=== PATIENT | female | born 1980 | race Caucasian/White ===

== ENCOUNTER 2018-02-09 14:18 | Emergency (ER) | payer OTHER ==
[2018-02-09 14:52] VITALS: BP 158/75; PULSE 78; RESP 18; TEMP 98.2; O2SAT 100
[2018-02-09 15:19] VITALS: BMI 25.7
[2018-02-09] MEDS ORDERED: Albuterol 0.083% Inhal Sol (2.5 mg/3 mL) UD INH STA (15:20)
[2018-02-09 15:59] LABS: URINE BILIRUBIN NEGATIVE (NEGATIVE); URINE BLOOD NEGATIVE (NEGATIVE); URINE GLUCOSE (UA) NEGATIVE (NEGATIVE); URINE LEUKOCYTE ESTERASE TRACE Leu/uL (NEGATIVE); URINE PROTEIN 30 mg/dL (<30 mg/dL); URINE UROBILINOGEN 0.2 E.U./dL (<1 E.U./dL)
[2018-02-09 16:01] LABS: URINE APPEARANCE CLEAR (CLEAR); URINE COLOR YELLOW (YELLOW)
--- NOTE | 2018-02-09 16:06 | ED PDOC ---
Arrival/HPI - General Chief Complaint: ENT Problem Time Seen by Provider: 02/09/18 14:22 Historian: Patient - History of Present Illness Narrative History of Present Illness (Text): 02/09/18 16:21 38yo female with no past medical history who present with complaint of nonproductive cough, sore throat, dysuria, urinary frequency, x few days. States sore throat started today. She smokes cigarette. Denies abdominal pain, fever, chills, chest pain, SOB, drooling, hoarseness, neck pain, hematuria, nausea, vomiting, diarrhea, sick contact, any other complaint. Past Medical History - Provider Review Nursing Documentation Reviewed: Yes - Past History Past History: No Previous - Infectious Disease Hx of Infectious Diseases: None - Tetanus Immunization Tetanus Immunization: Unknown - Cardiac Hx Hypertension: Yes - Psychiatric Hx Depression: No Hx Emotional Abuse: No Hx Physical Abuse: No Hx Substance Use: No - Surgical History Hx Section: Yes (x 3) - Anesthesia Hx Anesthesia: No Hx Anesthesia Reactions: No Hx Malignant Hyperthermia: No - Suicidal Assessment Feels Threatened In Home Enviroment: No Family/Social History - Physician Review Nursing Documentation Reviewed: Yes Family/Social History: Unknown Family HX Smoking Status: Light Smoker < 10 Cigarettes Daily Hx Alcohol Use: No Hx Substance Use: No Hx Substance Use Treatment: No Allergies/Home Meds Allergies/Adverse Reactions: Allergies No Known Allergies Allergy (Verified 04/30/16 13:43) Review of Systems - Physician Review All systems were reviewed & negative as marked: Yes - Review of Systems Constitutional: Normal Eyes: Normal ENT: Sore Throat Respiratory: Cough. absent: SOB, Sputum Cardiovascular: Normal Gastrointestinal: Normal. absent: Abdominal Pain Genitourinary Female: Dysuria, Frequency. absent: Hematuria Musculoskeletal: Normal Skin: Normal Neurological: Normal Endocrine: Normal Hemo/Lymphatic: Normal Psychiatric: Normal Physical Exam Vital Signs Reviewed: Yes Vital Signs Temp Pulse Resp BP Pulse Ox 02/09/18 17:02 78 18 158/75 H 100 02/09/18 14:51 98.2 F 78 18 158/75 H 100 Temperature: Afebrile Blood Pressure: Normal Pulse: Regular Respiratory Rate: Normal Appearance: Positive for: Well-Appearing, Non-Toxic, Comfortable Pain Distress: None Mental Status: Positive for: Alert and Oriented X 3 - Systems Exam Head: Present: Atraumatic, Normocephalic Pupils: Present: PERRL Extroacular Muscles: Present: EOMI Conjunctiva: Present: Normal Mouth: Present: Moist Mucous Membranes Pharnyx: Present: Normal. No: ERYTHEMA, EXUDATE, TONSILS ENLARGED, Peritonsilar Swelling, Uvular Deviation, Muffled/Hoarse Voice, Strider, Soft Palate/Uvular Edema Neck: Present: Normal Range of Motion Respiratory/Chest: Present: Clear to Auscultation, Good Air Exchange. No: Respiratory Distress, Accessory Muscle Use, Wheezes, Decreased Breath Sounds, Rales, Retracting, Rhonchi Cardiovascular: Present: Regular Rate and Rhythm, Normal S1, S2. No: Murmurs Abdomen: Present: Normal Bowel Sounds. No: Tenderness, Distention, Peritoneal Signs, Rebound, Guarding, McBurney's Point Tender, Rovsing's Sign Present Back: Present: Normal Inspection. No: CVA Tenderness Upper Extremity: Present: Normal Inspection. No: Cyanosis, Edema Lower Extremity: Present: Normal Inspection. No: Edema Neurological: Present: GCS=15, CN II-XII Intact, Speech Normal Skin: Present: Warm, Dry, Normal Color. No: Rashes Psychiatric: Present: Alert, Oriented x 3, Normal Insight, Normal Concentration Medical Decision Making ED Course and Treatment: 02/10/18 01:33 PT in emergency department for stated history. She was not in any distress. Her lung was CTA b/l. She was hemodynamically stable. She requested to be DC home, couldn't wait for chest xray She was treated with Keflex for UTI. Tessalon perles given for cough. Referred to her PMD. - Lab Interpretations Lab Results: Lab Results 02/09/18 15:55: Urine Color Yellow, Urine Appearance Clear, Urine pH 6.0, Ur Specific [place] 1.025, Urine Protein 30 H, Urine Glucose (UA) Negative, Urine Ketones Trace H, Urine Blood Negative, Urine Nitrate Negative, Urine Bilirubin Negative, Urine Urobilinogen 0.2, Ur Leukocyte Esterase Trace H, Urine RBC Negative, Urine WBC 10 - 15, Ur Epithelial Cells Many, Urine Bacteria Mod 02/09/18 15:48: Grp A Beta Strep Ag Negative - Medication Orders Current Medication Orders: Discontinued Medications Albuterol Sulfate (Albuterol 0.083% Inhal Kika (2.5 Mg/3 Ml) Ud) 2.5 mg INH STAT STA Stop: 02/09/18 15:21 Last Admin: 02/09/18 15:43 Dose: 2.5 mg Benzonatate (Tessalon Perles) 100 mg PO ONCE STA Stop: 02/09/18 16:20 Last Admin: 02/09/18 16:49 Dose: 100 mg Cephalexin Monohydrate (Keflex) 500 mg PO STAT STA PRN Reason: Protocol Stop: 02/09/18 16:20 Last Admin: 02/09/18 16:49 Dose: 500 mg Disposition/Present on Arrival - Present on Arrival Any Indicators Present on Arrival: No History of DVT/PE: No History of Uncontrolled Diabetes: No Urinary Catheter: No History of Decub. Ulcer: No History Surgical Site Infection Following: None - Disposition Have Diagnosis and Disposition been Completed?: Yes Diagnosis: Cough, Sore throat, UTI (urinary tract infection) Disposition: HOME/ ROUTINE Disposition Time: 16:40 Patient Plan: Discharge Condition: STABLE Discharge Instructions (ExitCare): Urinary Tract Infections in Adults, Sore Throat in Adults Additional Instructions: Follow up with your doctor Return to emergency department for any new or worsening symptoms Prescriptions: Benzocaine/Menthol [Sore Throat Lozenge] 1 each MM TID #20 lozenge Benzonatate [Tessalon Perle] 100 mg PO TID #30 capsule Cephalexin [cephalexin] 500 mg PO TID #21 cap Ref[place]: [facility] [place] [facility] [place] - Follow up with primary Forms: [employer] (Mexican)
[2018-02-09 16:16] LABS: URINE RBC NEGATIVE /hpf (0-2)
[2018-02-09 16:17] LABS: URINE BACTERIA MOD (NEG); URINE EPITHELIAL CELLS MANY /hpf (0-5)
== END 2018-02-09 17:02 | disposition home or self-care (01) ==
LOC: ED 14:18
DX: N39.0 Urinary tract infection, site not specified (principal); J02.9 Acute pharyngitis, unspecified; R05 Cough; F17.210 Nicotine dependence, cigarettes, uncomplicated; I10 Essential (primary) hypertension